=== PATIENT | female | born 1980 | race Caucasian/White ===

== ENCOUNTER 2016-06-04 12:23 | Emergency (ER) | payer OTHER ==
[~2016-06-04] VITALS: Ht 170.2 cm; Wt 79.2 kg
[~2016-06-04 12:23] MED LIST: BIRTH CONTROL; NAPROSYN500 MG PO; PERCOCET 5/31 TABLET PO
[2016-06-04] MEDS ORDERED: TOPIRAMATE50 MG PO (13:04)
[2016-06-04] MEDS ORDERED: BUPROPION XL150 MG PO (13:05)
[2016-06-04] MEDS ORDERED: BRINTELLIX20 MG PO (13:05)
[2016-06-04] MEDS ORDERED: FEXOFENADINE H180 MG PO (13:06)
[2016-06-04 13:21] LABS: HEMATOCRIT 42.5 % (36.0-46.0); MCHC 32.7 G/DL (30.0-36.0); MCV 88.5 FL (83-99); MEAN PLAT.VOLUME 8.7 uM^3 (9.5-12.4); PLATELET COUNT 311 K/uL (156-360); RBC DIS.WIDTH-CV 11.9 % (11.8-14.6); RBC DIS.WIDTH-SD 38.1 % (39-53); WHITE BLOOD COUNT 11.3 K/uL (4.1-10.2)
[2016-06-04 13:30] LABS: AMYLASE 73 IU/L (1-118); CHLORIDE 109 mEq/L (99-109); POTASSIUM 4.1 mEq/L (3.7-5.4); SODIUM 140 mEq/L (136-147)
[2016-06-04 13:32] LABS: GLUCOSE 114 mg/dL (70-99)
[2016-06-04 13:33] LABS: ANION GAP 8 MEQ/L (2-14)
[2016-06-04 13:34] LABS: TOTAL BILIRUBIN 0.3 mg/dL (0.0-1.0)
[2016-06-04 13:35] LABS: ALKALINE PHOSPHATASE 79 IU/L (3-129)
[2016-06-04 13:36] LABS: GFR ESTIMATE (CALCULATED) > 59 mL/min/
[2016-06-04 13:37] LABS: UREA NITROGEN (BUN) 14 mg/dL (9-23)
[2016-06-04 14:08] LABS: ADD MIUA? YES; BILIRUBIN NEGATIVE; BLOOD MODERATE; COLOR YELLOW ((YELLOW)); GLUCOSE (STRIP) NEGATIVE; KETONES NEGATIVE; LEUKOCYTES TRACE; NITRITE NEGATIVE; PROTEIN (STRIP) NEGATIVE; SPECIFIC GRAVITY 1.018 (1.000-1.030); UROBILINOGEN 0.2 MG/DL (0.2-1.0)
[2016-06-04 14:17] LABS: BACTERIA RARE /HPF; EPITHELIAL CELLS 2+ /HPF; MUCUS NONE SEEN /LPF; RED BLOOD CELLS NONE SEEN /HPF (0-5); UCUL ADDED? NO; WHITE BLOOD CELLS 0-5 /HPF (0-5)
[2016-06-04] MEDS ORDERED: ZOFRAN ODT4 MG PO (16:24)
[2016-06-04] MEDS ORDERED: FLOMAX0.4 MG PO (16:24)
[2016-06-04] MEDS ORDERED: PERCOCET 5/31 TABLET PO (16:24)
[2016-06-04 16:36] VITALS: BP 152/88
== END 2016-06-04 16:37 | disposition home or self-care (01) ==
LOC: EME 12:23 → RME 12:23
PROVIDERS: Physician Assistant
DX: N20.0 Calculus of kidney (principal)
CPT/HCPCS: 74177; 80053; 81003; 82150; 85027; 99281; 99285; J1885; J2270; J2405; J3010; J7030

== ENCOUNTER 2017-02-06 13:26 | Emergency (ER) | payer OTHER ==
[~2017-02-06] VITALS: Ht 170.2 cm; Wt 77.5 kg
[~2017-02-06 13:26] MED LIST changes: +BRINTELLIX20 MG PO; +BUPROPION XL150 MG PO; +FEXOFENADINE H180 MG PO; +FLOMAX0.4 MG PO; +TOPIRAMATE50 MG PO; +ZOFRAN ODT4 MG PO
[2017-02-06 14:03] LABS: ADD MIUA? YES; BILIRUBIN NEGATIVE; BLOOD LARGE; COLOR YELLOW ((YELLOW)); GLUCOSE (STRIP) NEGATIVE; KETONES NEGATIVE; LEUKOCYTES TRACE; NITRITE NEGATIVE; PROTEIN (STRIP) 100; SPECIFIC GRAVITY 1.027 (1.000-1.030); UROBILINOGEN 0.2 MG/DL (0.2-1.0)
[2017-02-06 14:15] LABS: HEMATOCRIT 43.5 % (36.0-46.0); MCH 29.5 PG (29.0-34.0); MCHC 32.9 G/DL (30.0-36.0); MCV 89.7 FL (83-99); MEAN PLAT.VOLUME 8.8 uM^3 (9.5-12.4); PLATELET COUNT 276 K/uL (156-360); RBC DIS.WIDTH-CV 12.3 % (11.8-14.6); RBC DIS.WIDTH-SD 40.1 % (39-53); RED BLOOD COUNT 4.85 M/uL (3.80-5.20); WHITE BLOOD COUNT 12.1 K/uL (4.1-10.2)
[2017-02-06 14:23] LABS: CHLORIDE 109 mEq/L (99-109); POTASSIUM 3.5 mEq/L (3.7-5.4); SODIUM 141 mEq/L (136-147)
[2017-02-06 14:24] LABS: GLUCOSE 106 mg/dL (70-99)
[2017-02-06 14:26] LABS: ANION GAP 9 MEQ/L (2-14)
[2017-02-06 14:28] LABS: GFR ESTIMATE (CALCULATED) > 59 mL/min/
[2017-02-06 14:29] LABS: UREA NITROGEN (BUN) 11 mg/dL (9-23)
[2017-02-06 14:37] LABS: QUANTITATIVE HCG < 4.0 MIU/ML
[2017-02-06 14:46] LABS: RED BLOOD CELLS TNTC /HPF (0-5)
[2017-02-06 14:47] LABS: BACTERIA RARE /HPF; EPITHELIAL CELLS 1+ /HPF; MUCUS NONE SEEN /LPF; UCUL ADDED? YES
[2017-02-06] MEDS ORDERED: PERCOCET 5/31 TABLET PO (16:57)
[2017-02-06] MEDS ORDERED: FLOMAX0.4 MG PO (16:57)
[2017-02-06] MEDS ORDERED: ZOFRAN ODT4 MG PO (16:57)
[2017-02-06 17:45] VITALS: BP 133/87
[2017-02-08] MEDS ORDERED: ALLERGY RELIEF180 MG PO (14:07)
[2017-02-08] MEDS ORDERED: MIRENA1 EACH IY (14:08)
== END 2017-02-06 17:50 | disposition home or self-care (01) ==
LOC: RME 13:26 → EME 13:26 → RME 17:50
DX: N20.0 Calculus of kidney (principal); Z87.442 Personal history of urinary calculi; Z90.49 Acquired absence of other specified parts of digestive tract; Z88.0 Allergy status to penicillin; Z88.1 Allergy status to other antibiotic agents
CPT/HCPCS: 74177; 80048; 81003; 84702; 85027; 87086; 99281; 99284; J1885; J2270; J2405; J3010; J7030

== ENCOUNTER 2017-02-10 10:09 | Day surgery (SDC) | payer OTHER ==
[~2017-02-10] VITALS: Ht 170.2 cm; Wt 77.6 kg
[~2017-02-10 10:09] MED LIST changes: +ALLERGY RELIEF180 MG PO; +MIRENA1 EACH IY
[2017-02-10] MEDS ORDERED: CIPRO500 MG PO (11:04)
[2017-02-10 11:07] VITALS: BP 127/79
[2017-02-10 13:13] VITALS: BP 135/85
[2017-02-10 14:00] VITALS: BP 133/67
== END 2017-02-10 14:05 | disposition home or self-care (01) ==
LOC: SDC 10:09
DX: N20.1 Calculus of ureter (principal); N13.5 Crossing vessel and stricture of ureter without hydronephrosis; F32.9 Major depressive disorder, single episode, unspecified; Z88.0 Allergy status to penicillin
CPT/HCPCS: 74000; C2625; J1100; J1580; J1885; J2250; J2405; J2765; J3010

== ENCOUNTER 2017-04-27 14:59 | Inpatient (IN) | payer OTHER ==
[~2017-04-27] VITALS: Ht 170.2 cm; Wt 84.5 kg
[~2017-04-27 14:59] MED LIST changes: +CIPRO500 MG PO
[2017-04-27 16:31] LABS: HEMATOCRIT 41.9 % (36.0-46.0); HEMOGLOBIN 14.3 G/DL (11.9-15.5); MCH 29.9 PG (29.0-34.0); MCHC 34.1 G/DL (30.0-36.0); MCV 87.5 FL (83-99); PLATELET COUNT 275 K/uL (156-360); RBC DIS.WIDTH-CV 12.2 % (11.8-14.6); RED BLOOD COUNT 4.79 M/uL (3.80-5.20); WHITE BLOOD COUNT 13.3 K/uL (4.1-10.2)
[2017-04-27 16:39] LABS: CHLORIDE 103 mEq/L (99-109); POTASSIUM 4.8 mEq/L (3.7-5.4); SODIUM 137 mEq/L (136-147)
[2017-04-27 16:41] LABS: GLUCOSE 90 mg/dL (70-99)
[2017-04-27 16:44] LABS: CREATININE 0.8 mg/dL (0.6-1.3); GFR ESTIMATE (CALCULATED) > 59 mL/min/
[2017-04-27 16:45] LABS: UREA NITROGEN (BUN) 11 mg/dL (9-23)
[2017-04-27 16:54] LABS: QUANTITATIVE HCG < 4.0 MIU/ML
[2017-04-27] MEDS ORDERED: TIZANIDINE HCL2 MG PO (17:47)
[2017-04-27 19:50] LABS: APPEARANCE CLEAR ((CLEAR)); BILIRUBIN NEGATIVE; BLOOD SMALL; COLOR STRAW ((YELLOW)); GLUCOSE (STRIP) NEGATIVE; KETONES 5; LEUKOCYTES TRACE; NITRITE NEGATIVE; PROTEIN (STRIP) NEGATIVE; SPECIFIC GRAVITY 1.008 (1.000-1.030); UROBILINOGEN 0.2 MG/DL (0.2-1.0)
[2017-04-27 20:14] LABS: BACTERIA RARE /HPF; EPITHELIAL CELLS RARE /HPF; MUCUS TRACE /LPF; UCUL ADDED? NO; WHITE BLOOD CELLS 0-5 /HPF (0-5)
[2017-04-27 21:25] VITALS: BP 136/89
[2017-04-28 00:23] VITALS: BP 139/80
[2017-04-28 07:02] LABS: CHLORIDE 108 MEQ/L (99-109); CREATININE 0.8 MG/DL (0.6-1.3); GFR ESTIMATE (CALCULATED) > 59 mL/min/; GLUCOSE 99 mg/dL (70-99); SODIUM 140 MEQ/L (136-147); UREA NITROGEN (BUN) 10 mg/dL (9-23)
[2017-04-28 07:03] LABS: POTASSIUM 3.8 MEQ/L (3.7-5.4)
[2017-04-28 07:20] LABS: BASOPHIL (%) 0.2 % (0-1); EOSINOPHIL (%) 0.5 % (0-5); EOSINOPHIL COUNT 0.1 K/uL (0-0.3); HEMATOCRIT 37.7 % (36.0-46.0); HEMOGLOBIN 12.5 G/DL (11.9-15.5); IMMATURE GRANULOCYTE (%) 0.4 % (0.0-0.7); LYMPHOCYTE (%) 9.4 % (15-42); MCHC 33.2 G/DL (30.0-36.0); MCV 90.6 FL (83-99); MONOCYTE (%) 10.2 % (3-12); MONOCYTE COUNT 1.1 K/uL (0-0.8); NEUTROPHIL (%) 79.3 % (45-76); NEUTROPHIL COUNT 8.8 K/uL (1.8-6.4); RBC DIS.WIDTH-CV 12.6 % (11.8-14.6); RBC DIS.WIDTH-SD 41.5 % (39-53); RED BLOOD COUNT 4.16 M/uL (3.80-5.20); WHITE BLOOD COUNT 11.1 K/uL (4.1-10.2)
[2017-04-28 07:30] LABS: PLAT.SUFFICIENCY ADEQUATE
[2017-04-28 07:35] VITALS: BP 144/81
[2017-04-28 07:45] LABS: PLATELET COUNT 187 K/uL (156-360)
[2017-04-28 15:45] VITALS: BP 136/82
[2017-04-29 00:04] VITALS: BP 120/67
[2017-04-29 06:45] VITALS: BP 132/71
[2017-04-29] MEDS ORDERED: CIPRO500 MG PO (10:37)
[2017-04-29] MEDS ORDERED: ROXICODONE5 MG PO (10:38)
[2017-04-29 12:56] VITALS: BP 132/71
== END 2017-04-29 13:32 | disposition home or self-care (01) | DRG 670 ==
LOC: EME 14:59 → 5EAST 18:37 → EDOF 18:37 → ENRESERV 18:40 → 5EAST 19:41 → ENPENDDIS 04-29 → 5EAST 04-29 13:32
PROVIDERS: Hospitalist; Nurse Practitioner Family; Urology
DX: N13.6 Pyonephrosis (principal); G43.909 Migraine, unspecified, not intractable, without status migrainosus; I10 Essential (primary) hypertension; E78.5 Hyperlipidemia, unspecified; R22.1 Localized swelling, mass and lump, neck; G47.30 Sleep apnea, unspecified; F43.10 Post-traumatic stress disorder, unspecified; F32.9 Major depressive disorder, single episode, unspecified; F41.9 Anxiety disorder, unspecified; Z87.442 Personal history of urinary calculi; Z82.49 Family history of ischemic heart disease and other diseases of the circulatory system
CPT/HCPCS: 80048; 81003; 82365 90; 84702; 85025; 85027; 99281; 99285; C1769; C2625; J0330; J0744; J1100; J1170; J1644; J1885; J2250; J2270; J2405; J3010; J7030; J7120

== ENCOUNTER 2017-07-05 00:58 | Emergency (ER) | payer OTHER ==
[~2017-07-05] VITALS: Ht 170.2 cm; Wt 84.3 kg
[~2017-07-05 00:58] MED LIST changes: +ROXICODONE5 MG PO; +TIZANIDINE HCL2 MG PO
[2017-07-05] MEDS ORDERED: MOTRIN800 MG PO (02:30)
[2017-07-05] MEDS ORDERED: NORCO 5/3251 TABLET PO (02:30)
[2017-07-05 02:49] VITALS: BP 109/74
== END 2017-07-05 02:49 | disposition home or self-care (01) ==
LOC: EME 00:58
DX: S63.502A Unspecified sprain of left wrist, initial encounter (principal); S40.022A Contusion of left upper arm, initial encounter; Y04.8XXA Assault by other bodily force, initial encounter; F32.9 Major depressive disorder, single episode, unspecified; Z88.1 Allergy status to other antibiotic agents; Z88.0 Allergy status to penicillin
CPT/HCPCS: 73060; 73110; 99281; 99284